=== PATIENT | male | born 1990 | race African-American/Black ===

== ENCOUNTER 2020-04-11 14:07 | Emergency (ER) | payer SELFPAY ==
[~2020-04-11] VITALS: Ht 185.4 cm; Wt 77.1 kg
[2020-04-11] MEDS ORDERED: PROAIR HFA8.5 GM INH (14:18)
[2020-04-11] MEDS ORDERED: MIRTAZAPINE7.5 MG ORAL (14:18)
[2020-04-11] MEDS ORDERED: PAROXETINE HCL10 MG ORAL ×2 (14:18→16:55)
--- NOTE | 2020-04-11 15:00 | NUR ---
ED Nurse Note: did not need to use restraints that were ordered to place pt in a gown. pt willingly put gown on and given several blankets.
[2020-04-11 15:03] LABS: EOSINOPHILS % (AUTO) 0.3 % (0.0-3.0); HEMATOCRIT 43.1 % (42.0-52.0); HEMOGLOBIN 15.2 G/DL (14.2-18.0); LYMPHOCYTES % (AUTO) 27.5 % (20.0-45.0); MEAN CORPUSCULAR VOLUME 88 FL (80-99); MONOCYTES % (AUTO) 6.6 % (1.0-10.0); NEUTROPHILS % (AUTO) 62.6 % (45.0-75.0); PLATELET COUNT 310 K/UL (150-450); RED BLOOD COUNT 4.92 M/UL (4.70-6.10); WHITE BLOOD COUNT 12.6 K/UL (4.8-10.8)
--- NOTE | 2020-04-11 15:06 | NUR ---
ED Nurse Note: placed pt's belongings bag in the locked cabinet with his belongings sheet that he signed.
[2020-04-11 15:12] LABS: ANION GAP 11 mmol/L (5-15); BLOOD UREA NITROGEN 12 mg/dL (7-18); CALCIUM 9.9 MG/DL (8.5-10.1); CARBON DIOXIDE 24 MMOL/L (21-32); CHLORIDE 103 MMOL/L (98-107); CREATININE 1.5 MG/DL (0.55-1.30); POTASSIUM 4.7 MMOL/L (3.5-5.1); SODIUM 138 MMOL/L (136-145)
--- NOTE | 2020-04-11 15:14 | NUR ---
ED Nurse Note: Arben lima observing pt with documentation
[2020-04-11 15:16] LABS: ALANINE AMINOTRANSFERASE 9 U/L (12-78); ALBUMIN 3.9 G/DL (3.4-5.0); ALBUMIN/GLOBULIN RATIO 0.8 (1.0-2.7); ALKALINE PHOSPHATASE 79 U/L (46-116); ASPARTATE AMINO TRANSFERASE 21 U/L (15-37); BILIRUBIN,TOTAL 0.3 MG/DL (0.2-1.0)
--- NOTE | 2020-04-11 15:20 | NUR ---
ED Nurse Note: gave pt urinal for sample. pt refusing at this time. pt is speaking loudly with profanity at the [employer]
--- NOTE | 2020-04-11 15:28 | Emergency Room Report ---
History of Present Illness General Chief Complaint: Behavioral Complaint Source: Patient Present Illness HPI 29-year-old male presents to ED for behavioral evaluation. Brought in by [employer] from [facility] facility. Stating he wanted to hurt himself. Admitted to drug use. Patient denies wanting to hurt himself at this time. States he wants to leave. States he feels very anxious and upset that he was brought here. Denies chest pain or shortness of breath. Denies nausea or vomiting. No other aggravating relieving factors. Denies any other associated symptoms Allergies: Coded Allergies: No Known Allergies (Unverified , 04/11/20) COVID-19 Screening Contact w/high risk pt: No Experienced COVID-19 symptoms?: No COVID-19 Testing performed [employer]: No Patient History Past Medical History: psych hx Past Surgical History: none Pertinent Family History: none Social History: Reports: drug use; Denies: smoking, alcohol use Immunizations: UTD Reviewed Nursing Documentation: PMH: Agreed; PSxH: Agreed Nursing Documentation-PMH Past Medical History: No History, Except For Hx Asthma: Yes History Of Psychiatric Problem: Yes - anxiety, shizophrenia Review of Systems All Other Systems: negative except mentioned in HPI Physical Exam Vital Signs Date Time Temp Pulse Resp B/P (MAP) Pulse Ox O2 Delivery O2 Flow Rate FiO2 04/11/20 14:09 97.9 108 17 108/82 (91) 97 Room Air Sp02 EP Interpretation: reviewed, normal General Appearance: no apparent distress, alert, GCS 15, non-toxic Head: normocephalic, atraumatic Eyes: bilateral eye normal inspection, bilateral eye PERRL ENT: hearing grossly normal, normal pharynx, no angioedema, normal voice Neck: full range of motion, supple/symm/no masses Respiratory: chest non-tender, lungs clear, normal breath sounds, speaking full sentences Cardiovascular #1: regular rate, rhythm, no edema Cardiovascular #2: 2+ carotid (R), 2+ carotid (L), 2+ radial (R), 2+ radial (L), 2+ dorsalis pedis (R), 2+ dorsalis pedis (L) Gastrointestinal: normal bowel sounds, non tender, soft, non-distended, no guarding, no rebound Rectal: deferred Genitourinary: normal inspection, no CVA tenderness Musculoskeletal: back normal, normal range of motion, gait/station normal, non- tender Neurologic: alert, motor strength/tone normal, oriented x3, sensory intact, responsive, speech normal Psychiatric: anxious Reflexes: 3+ bicep (R), 3+ bicep (L), 3+ tricep (R), 3+ tricep (L), 3+ knee (R), 3+ knee (L) Lymphatic: no adenopathy Medical Decision Making Diagnostic Impression: Primary Impression: Behavioral change ER Course Hospital Course Patient brought in by [employer] for behavioral evaluation. On 5150 hold Differential diagnoses include: Major depressive disorder, unspecified psychosis, EtOH abuse, drug abuse Clinical course Patient placed on stretcher. On one to one observation. After initial history and physical I ordered labs, U. tox Labs-electrolytes normal, aspirin/Tylenol levels normal, EtOH level normal, U. tox +THC patient evaluated by DR Price (Psychiatry). She agrees that patient is not immediate danger to self or others. I agree with her assessment recommends Haldol decanoate long-acting medication here. Refills of his medications. We will refill his Paxil and Remeron. Safe for discharge close outpatient follow-up. I will provide referrals i. I feel this is a highly complex case requiring extensive working including EKG/Rhythm strip, Xray/CT/US, Blood/urine lab work, repeat exams while in ED, and administration of strong opiates/narcotics for pain control, admission to hospital or close patient follow up. Laboratory Tests Test 04/11/20 11:29 04/11/20 16:26 White Blood Count 12.6 K/UL (4.8-10.8) H Red Blood Count 4.92 M/UL (4.70-6.10) Hemoglobin 15.2 G/DL (14.2-18.0) Hematocrit 43.1 % (42.0-52.0) Mean Corpuscular Volume 88 FL (80-99) Mean Corpuscular Hemoglobin 31.0 PG (27.0-31.0) Mean Corpuscular Hemoglobin Concent 35.4 G/DL (32.0-36.0) Red Cell Distribution Width 13.0 % (11.6-14.8) Platelet Count 310 K/UL (150-450) Mean Platelet Volume 9.8 FL (6.5-10.1) Neutrophils (%) (Auto) 62.6 % (45.0-75.0) Lymphocytes (%) (Auto) 27.5 % (20.0-45.0) Monocytes (%) (Auto) 6.6 % (1.0-10.0) Eosinophils (%) (Auto) 0.3 % (0.0-3.0) Basophils (%) (Auto) 3.0 % (0.0-2.0) H Sodium Level 138 MMOL/L (136-145) Potassium Level 4.7 MMOL/L (3.5-5.1) Chloride Level 103 MMOL/L (98-107) Carbon Dioxide Level 24 MMOL/L (21-32) Anion Gap 11 mmol/L (5-15) Blood Urea Nitrogen 12 mg/dL (7-18) Creatinine 1.5 MG/DL (0.55-1.30) H Estimat Glomerular Filtration Rate > 60 mL/min (>60) Glucose Level 93 MG/DL (74-106) Calcium Level 9.9 MG/DL (8.5-10.1) Total Bilirubin 0.3 MG/DL (0.2-1.0) Aspartate Amino Transf (AST/SGOT) 21 U/L (15-37) Alanine Aminotransferase (ALT/SGPT) 9 U/L (12-78) L Alkaline Phosphatase 79 U/L (46-116) Total Protein 8.6 G/DL (6.4-8.2) H Albumin 3.9 G/DL (3.4-5.0) Globulin 4.7 g/dL Albumin/Globulin Ratio 0.8 (1.0-2.7) L Salicylates Level 3.3 ug/mL (2.8-20) Acetaminophen Level < 2 MCG/ML (10-30) L Serum Alcohol < 3 mg/dL Urine Color Yellow Urine Appearance Clear Urine pH 9 (4.5-8.0) Urine Specific [place] 1.015 (1.005-1.035) Urine Protein 1+ (NEGATIVE) H Urine Glucose (UA) Negative (NEGATIVE) Urine Ketones 1+ (NEGATIVE) H Urine Blood Negative (NEGATIVE) Urine Nitrite Negative (NEGATIVE) Urine Bilirubin Negative (NEGATIVE) Urine Urobilinogen Normal MG/DL (0.0-1.0) Urine Leukocyte Esterase 1+ (NEGATIVE) H Urine RBC 0-2 /HPF (0 - 0) H Urine WBC 2-4 /HPF (0 - 0) Urine Squamous Epithelial Cells None /LPF (NONE/OCC) Urine Bacteria None /HPF (NONE) Urine Mucus Moderate /LPF (NONE/OCC) H Urine Opiates Screen Negative (NEGATIVE) Urine Barbiturates Screen Negative (NEGATIVE) Phencyclidine (PCP) Screen Negative (NEGATIVE) Urine Amphetamines Screen Negative (NEGATIVE) Urine Benzodiazepines Screen Negative (NEGATIVE) Urine Cocaine Screen Negative (NEGATIVE) Urine Marijuana (THC) Screen Positive (NEGATIVE) H Last Vital Signs Date Time Temp Pulse Resp B/P (MAP) Pulse Ox O2 Delivery O2 Flow Rate FiO2 04/11/20 14:15 89 22 Room Air 04/11/20 14:09 97.9 108/82 (91) 97 Status: improved Disposition: HOME, SELF-CARE Condition: Stable Scripts Mirtazapine* (REMERON*) 30 Mg Tablet 30 MG ORAL BEDTIME, #30 TAB Prov: Som Cuevas MD 04/11/20 Paroxetine Hcl* (PAXIL*) 10 Mg Tablet 10 MG ORAL DAILY, #30 TAB 0 Refills Prov: Som Cuevas MD 04/11/20 Referrals: NOT CHOSEN IPA/,REFERRING (PCP) Som Cuevas MD Apr 11, 2020 15:28
--- NOTE | 2020-04-11 15:34 | NUR ---
Herminio saez in [facility] - 04/11/20 at 1701 by ESTEPHANIA ED Nurse Note: Edmond lima cleansed room with normal saline
--- NOTE | 2020-04-11 16:18 | NUR ---
ED Nurse Note: pt yelling and cursing saying, "give my motherfuckin clothes", "I need to get the fuck out of here". pt comes out in the hallway yelling and cursing. ERMD states that [facility] has placed him on a hold and he can't legally leave. if he chooses to then the police will be called. Pt states that he wants to see the psych dr and it doesn't take this "muthafuckin" long. pt yelling "I need my muthafuckin belongings" over and over. Security on the unit. informed pt we needed a urine sample. he yells no one asked him for one. reiterated that he was given a urinal to use. he went to his room and brought urine out to the nurses desk and slammed it down on the counter saying here's your sample. "now is it going to take "fuckin" 2 hrs to get back". pt is sitting down in a chair in the hallway. pt speaking with his psychiatrist on the phone.
--- NOTE | 2020-04-11 16:35 | NUR ---
ED Nurse Note: Dr. Price saw patient and lifted hold.
[2020-04-11 16:38] LABS: APPEARANCE,URINE CLEAR; BILIRUBIN, URINE NEGATIVE (NEGATIVE); GLUCOSE, URINE (UA) NEGATIVE (NEGATIVE); KETONES,URINE 1+ (NEGATIVE); LEUKOCYTE ESTERASE ,URINE 1+ (NEGATIVE); NITRITE,URINE NEGATIVE (NEGATIVE); PH,URINE 9 (4.5-8.0); PROTEIN,URINE 1+ (NEGATIVE); UROBILINOGEN,URINE NORMAL MG/DL (0.0-1.0)
[2020-04-11 16:39] LABS: COLOR,URINE YELLOW
--- NOTE | 2020-04-11 16:54 | NUR ---
ED Nurse Note: hold has been lifted by his psychiatrist. he agreed with the psychiatrist to receive a haldol injection so he could be dc'd home. pt has been in his room quietly
[2020-04-11] MEDS ORDERED: MIRTAZAPINE30 MG ORAL (16:55)
[2020-04-11] MEDS ORDERED: Haloperidol Decanoate (Long Acting) 50mg Inj IM ONE (17:00)
[2020-04-11 17:05] VITALS: BP 108/82
--- NOTE | 2020-04-11 17:06 | NUR ---
ER DISCHARGE NOTE: Patient is cleared to be discharged per ERMD, pt is aox4, on room air, with stable vital signs. pt was given dc and prescription instructions, pt was able to verbalize understanding, pt id band removed. pt is able to ambulate with steady gait. pt took all belongings. pt appears calm and polite
--- NOTE | 2020-04-14 02:44 | History and Physical Report ---
DATE OF ADMISSION: 04/11/2020 HISTORY OF PRESENT ILLNESS: This is an male with a history of schizophrenia, methamphetamine abuse, as well as , admitted to the hospital on 5150 after he told to his board and care staff that he has thoughts of hurting himself. The patient stated that he has suicidal thoughts, anxiety, hopelessness, and helplessness. The patient does not have any suicidal or homicidal ideations, stated that he wanted to be discharged and get back on his medications. He agreed to receive Haldol injection. The patient is being off his psychotropic medication. He has a history of schizoaffective disorder. PAST PSYCHIATRIC HISTORY: He has a psychiatric hospitalization. No suicide attempt. PAST MEDICAL HISTORY: None. ALLERGIES: No known drug allergies. SUBSTANCE ABUSE HISTORY: Includes meth and weed. MENTAL STATUS EXAMINATION: The patient is oriented to time, self, place, and situation. Mood is depressed. Affect is blunted. Thought process is linear. Thought content, no suicidal or homicidal ideation. Cognition is intact. Insight and judgment are fair. ASSESSMENT: [place] I Schizoaffective disorder. [place] II Deferred. [place] III None. [place] IV Low. [place] V 50. PLAN: 1. We will discontinue the 5150. 2. The patient agreed to take Haldol Decanoate. 3. The patient will be followed with outpatient psychiatrist. Carmen Price M.D. DR: Coco JOB#: [id number] CC:
== END 2020-04-11 17:06 | disposition home or self-care (01) ==
LOC: EDBD 14:07 → EMR 14:43
DX: R46.89 Other symptoms and signs involving appearance and behavior (principal); J45.909 Unspecified asthma, uncomplicated; Z79.899 Other long term (current) drug therapy
CPT/HCPCS: 36415; 80053; 80307; 81003; 85025; 96372; 99284; G0480; J1631